=== PATIENT | female | born 1945 | race Caucasian/White ===

== ENCOUNTER 2024-12-04 12:52 | Outpatient (CLI) | payer MEDICARE, SELFPAY | END 2024-12-04 12:53 | disposition home or self-care (01) | LOC: KYNREF 12:52 | PROVIDERS: PCP Nurse Practitioner Family; Visit Provider Nurse Practitioner Family | DX: H00.015 Hordeolum externum left lower eyelid (principal); B95.7 Other staphylococcus as the cause of diseases classified elsewhere | CPT/HCPCS: 87070; 87186 ==

== ENCOUNTER 2025-02-04 09:02 | Outpatient (CLI) | payer MEDICARE, SELFPAY | END 2025-02-04 09:03 | disposition home or self-care (01) | PROVIDERS: PCP Nurse Practitioner Family; Visit Provider Nurse Practitioner Family | DX: E78.00 Pure hypercholesterolemia, unspecified (principal) | CPT/HCPCS: 80053; 80061; 85025 ==

== ENCOUNTER 2025-02-17 14:58 | Outpatient (CLI) | payer MEDICARE, SELFPAY ==
--- NOTE | 2025-02-17 15:30 | CRLHL7_ITS ---
For Patients: As a result of the Century Cures Act, medical imaging exams and procedure reports are released immediately into your electronic medical record. You may view this report before your referring provider. If you have questions, please contact your health care provider. XR DXA Bone Mineral Density (BMD) Reason for exam: Screening for osteoporosis. Current height (inches): 68.0 Weight (lbs.): 183.0 Menopause age: 47 Ethnicity: White 1. Have you had a previous hip or vertebral fracture? No. 2. Have you had any fractures during your adult life which did not result from significant trauma (e.g., auto accident)? Yes. 3. Did either of your parents have a hip fracture? No. 4. Do you smoke? No. 5. Have you ever taken Glucocorticoids? Yes. 6. Do you have rheumatoid arthritis? No. 7. Do you have secondary osteoporosis? No. 8. Do you drink 3 or more alcoholic drinks per day? No. 9. Are you being treated for osteoporosis? No. 10. Have you ever taken any of the following medications: Actonel, Evista, Fosamax, Miacalcin, Reclast, Boniva, Forteo, HRT (i.e., estrogen/hormone therapy), Protelos, Prolia, Vitamin D, Calcium, other ??? please specify. ANSWER: Yes; vitamin D and calcium. 11. Do you have any of the following medical conditions: Anorexia or bulimia, asthma or emphysema, end stage renal disease, hyperparathyroidism, any seizure disorders, cancer, inflammatory bowel diseases, hysterectomy, other ??? please specify. ANSWER: Yes; Hysterectomy. 12. What was your maximum height (inches)? 68. 13. Do you perform weightbearing exercise regularly? Yes. 14. Do you regularly consume dairy products? No. 15. Do you drink caffeinated beverages? Yes. 16. At what age did your period start? 16. 17. Are you premenopausal? No. 18. How many full-term pregnancies have you had? 3. 19. Have you ever missed your period for more than 6 months in a row (not including or menopause)? No. TECHNIQUE: Bone mineral density study was performed using the [employer]. FINDINGS: The results of the study expressed as bone mineral density (BMD) are as follows: Lumbar Spine L1 to L4: BMD: 1.054 g/cm2. T-score: 0.1. Z-score: 2.6. Neck Left: BMD: 0.815 g/cm2. T-score: -0.3. Z-score: 1.9. Right: BMD: 0.722 g/cm2. T-score: -1.1. Z-score: 1.0. Total Left: BMD: 1.069 g/cm2. T-score: 1.0. Z-score: 3.0. Right: BMD: 1.082 g/cm2. T-score: 1.1. Z-score: 3.1. IMPRESSION: Osteopenia. FRAX 10-year Fracture Risk Major Osteoporotic Fracture: 25% Hip Fracture: 4.8% Reported Risk Factors: [place] () Neck BMD = 0.722, BMI = 27.8. previous fracture, glucocorticoids. DON AVENDAÑO M.D. Diagnostic Radiologist [email or web address] Transcribed: 5:[address]/Dictated by: Don Avendaño MD @ 02/18/2025 8:36:00 AM (Electronically Signed)
== END 2025-02-17 14:59 | disposition home or self-care (01) ==
LOC: RAD 15:00
PROVIDERS: PCP Nurse Practitioner Family; Visit Provider Nurse Practitioner Family
DX: Z13.820 Encounter for screening for osteoporosis (principal); M85.89 Other specified disorders of bone density and structure, multiple sites
CPT/HCPCS: 77080

== ENCOUNTER 2025-04-06 11:25 | Outpatient (CLI) | payer MEDICARE, SELFPAY | END 2025-04-06 11:26 | disposition home or self-care (01) | LOC: NFLDREF 04-12 01:54 | PROVIDERS: PCP Nurse Practitioner Family; Referring Provider Nurse Practitioner Family; Visit Provider Nurse Practitioner Family | DX: N30.00 Acute cystitis without hematuria (principal) | CPT/HCPCS: 81001; 87086 ==

== ENCOUNTER 2025-05-31 09:59 | Outpatient (CLI) | payer MEDICARE, SELFPAY ==
[2025-05-31 13:22] LABS: Strep A DNA Probe* NOT DETECTED (Not Detectd)
== END 2025-05-31 10:00 | disposition home or self-care (01) ==
LOC: KYNREF 09:59
PROVIDERS: PCP Nurse Practitioner Family; Visit Provider Nurse Practitioner Family
DX: J02.9 Acute pharyngitis, unspecified (principal)
CPT/HCPCS: 87651